=== PATIENT | female | born 1970 | race Hispanic/Latino ===

== ENCOUNTER → 2018-11-26 | Outpatient (CLI) | payer BC | END | disposition home or self-care (01) | LOC: RAH 13:55 | PROVIDERS: ATTEND Internal Medicine | DX: Z12.31 Encounter for screening mammogram for malignant neoplasm of breast (principal) | CPT/HCPCS: 77067 ==

== ENCOUNTER → 2020-01-16 | Outpatient (CLI) | payer OTHER | END | disposition home or self-care (01) | LOC: RAH 14:04 | PROVIDERS: ATTEND Obstetrics & Gynecology | DX: Z12.31 Encounter for screening mammogram for malignant neoplasm of breast (principal); N64.89 Other specified disorders of breast | CPT/HCPCS: 77067 ==

== ENCOUNTER 2024-01-07 11:16 | Emergency (ER) | payer BC ==
[~2024-01-07] VITALS: Ht 152.4 cm; Wt 85.7 kg
[2024-01-07] MEDS: TRIAMCINOLONE ACETONIDE 40 MG/ML 1ML VIAL IM ONE (13:33)
[2024-01-07] MEDS: ORPHENADRINE 60MG/2ML IM ONE (13:33)
[2024-01-07] MEDS ORDERED: METH-662 PO (13:38)
[2024-01-07] MEDS ORDERED: PRED10TA23 PO (13:38)
[2024-01-07 13:51] VITALS: BP 169/72; PULSE 69; RESP 14; TEMP 97.9; O2SAT 99
== END 2024-01-07 13:56 | disposition home or self-care (01) ==
LOC: EDH 11:16
DX: S46.911A Strain of unspecified muscle, fascia and tendon at shoulder and upper arm level, right arm, initial encounter (principal); G56.00 Carpal tunnel syndrome, unspecified upper limb; I10 Essential (primary) hypertension; X58.XXXA Exposure to other specified factors, initial encounter; Y93.89 Activity, other specified; Y92.89 Other specified places as the place of occurrence of the external cause; Y99.8 Other external cause status
CPT/HCPCS: 99284; 72125; 96372 ×2; 93005; J3301; J2360